=== PATIENT | male | born 1985 | race Caucasian/White ===

== ENCOUNTER 2021-06-27 20:05 | Emergency (ER) | payer OTHER ==
[2021-06-27] MEDS ORDERED: Ketorolac 15 MG/ML SDV IM ONE (21:55)
[2021-06-27 23:35] LABS: CORONAVIRUS COVID-19 NAA POSITIVE (NEGATIVE)
== END 2021-06-28 00:44 | disposition home or self-care (01) ==
LOC: JD.ED 20:05
DX: U07.1 COVID-19 (principal)
CPT/HCPCS: 0241U; 36415; 74177; 80053; 81001; 83690; 85025; 96372; 99284; J1885